=== PATIENT | male | born 1990 | race Caucasian/White ===

== ENCOUNTER 2018-01-21 08:45 | Emergency (ER) | payer MEDICAID ==
[~2018-01-21 08:45] MED LIST: CHLO25CA10 PO
[2018-01-21] MEDS ORDERED: TRIA15CR61 TP (10:32)
== END 2018-01-21 09:22 | disposition left against medical advice (07) ==
LOC: ER 08:46
DX: K64.9 Unspecified hemorrhoids (principal); Z53.21 Procedure and treatment not carried out due to patient leaving prior to being seen by health care provider

== ENCOUNTER 2018-01-21 09:38 | Emergency (ER) | payer MEDICAID ==
[~2018-01-21] VITALS: Ht 172.7 cm; Wt 59.2 kg
[2018-01-21] MEDS ORDERED: TRIA15CR61 TP (10:32)
[2018-01-21 10:50] VITALS: BP 121/81
== END 2018-01-21 10:54 | disposition home or self-care (01) ==
LOC: ER 09:38
DX: K64.4 Residual hemorrhoidal skin tags (principal); J45.909 Unspecified asthma, uncomplicated; F12.90 Cannabis use, unspecified, uncomplicated; Z88.1 Allergy status to other antibiotic agents; Z79.899 Other long term (current) drug therapy
CPT/HCPCS: 99283

== ENCOUNTER 2018-04-15 10:22 | Emergency (ER) | payer MEDICAID ==
[~2018-04-15] VITALS: Ht 167.6 cm; Wt 72.5 kg
[2018-04-15 10:31] VITALS: BP 148/89
[2018-04-15 11:06] LABS: BASOPHILS # (AUTO) 0.1 X10'3 (0-0.2); EOSINOPHILS % (AUTO) 0.4 % (0-6); HEMATOCRIT 51.4 % (42.0-52.0); HEMOGLOBIN 17.1 g/dl (14.0-17.9); LYMPHOCYTES # (AUTO) 1.4 X10'3 (1.1-4.8); LYMPHOCYTES % (AUTO) 11.8 % (21-51); MEAN CORPUSCULAR HEMOGLOBIN 31.3 PG (27.0-31.0); MEAN CORPUSCULAR HGB CONC 33.3 % (33.0-36.5); MEAN CORPUSCULAR VOLUME 93.8 FL (78-98); MONOCYTES # (AUTO) 0.7 X10'3 (0-0.9); NEUTROPHILS # (AUTO) 9.4 X10'3 (1.8-7.7); NEUTROPHILS % (AUTO) 80.8 % (42-75); PLATELET COUNT 263 X10'3 (140-440); RED BLOOD COUNT 5.48 X10'6 (4.70-6.10); RED CELL DISTRIBUTION WIDTH 12.4 % (11.5-14.5); WHITE BLOOD COUNT 11.6 X10'3 (4.5-11.0)
[2018-04-15 11:12] LABS: CLARITY,URINE CLEAR (Clear); COLOR,URINE DARK YELLOW (Yellow); GLUCOSE, URINE NEGATIVE (Neg); KETONES,URINE TRACE mg/dl (Neg); OCCULT BLOOD,URINE NEGATIVE (Neg); PROTEIN,URINE 30 mg/dl (Neg); UA COLLECTION TYPE CLN CATCH MIDSTREAM
[2018-04-15 11:13] LABS: LEUKOCYTE ESTERASE ,URINE NEGATIVE (Neg)
[2018-04-15 11:14] LABS: NITRITES, URINE NEGATIVE (Neg)
[2018-04-15] MEDS ORDERED: ondansetron/PF 4mg/2ml inj IV ONE (11:15)
[2018-04-15] MEDS ORDERED: normal saline 1000ML IV soln IVB ONE (11:15)
[2018-04-15 11:22] LABS: BACTERIA,URINE NONE SEEN /HPF (Neg); RBC,URINE 0-2 /HPF (0-2); SQUAMOUS EPITHELIAL CELL,UR NONE SEEN /LPF (FEW); WBC,URINE 0-4 /HPF (0-4)
[2018-04-15 11:23] LABS: MUCUS STRANDS FEW /LPF (Neg); SPERM MODERATE /HPF (NEGATIVE)
[2018-04-15 11:28] LABS: PROTHROMBIN TIME 10.4 SECONDS (9.0-12.0)
[2018-04-15 11:47] LABS: ALANINE AMINOTRANSFERASE 83 U/L (12-78); ALBUMIN 4.4 G/DL (3.4-5.0); ALBUMIN/GLOBULIN RATIO 1.2 (1.1-1.5); ALKALINE PHOSPHATASE 117 IU/L (46-116); ANION GAP 14 (8-16); ASPARTATE AMINO TRANSFERASE 95 U/L (10-37); BILIRUBIN,TOTAL 1.4 MG/DL (0.1-1.0); BLOOD UREA NITROGEN 8 MG/DL (7-18); BUN/CREATININE RATIO 8.3 (5.4-32.0); CALCIUM 8.8 MG/DL (8.5-10.1); CHLORIDE 97 MMOL/L (99-107); CREATININE 0.96 MG/DL (0.60-1.10); GLUCOSE 98 MG/DL (70-104); LIPASE 125 U/L (73-393); POTASSIUM 3.4 MMOL/L (3.5-5.1); SODIUM 140 MMOL/L (135-145); TOTAL CARBON DIOXIDE 28.7 MMOL/L (24-32); TOTAL PROTEIN 8.1 G/DL (6.4-8.2); eGFR > 90 ML/MIN
[2018-04-15] MEDS ORDERED: ONDA4TAB6 PO (12:24)
== END 2018-04-15 12:41 | disposition home or self-care (01) ==
LOC: ER 10:22
DX: J04.0 Acute laryngitis (principal); R94.5 Abnormal results of liver function studies; R11.2 Nausea with vomiting, unspecified; F10.10 Alcohol abuse, uncomplicated; J45.909 Unspecified asthma, uncomplicated; F12.10 Cannabis abuse, uncomplicated; Z88.1 Allergy status to other antibiotic agents; Z88.8 Allergy status to other drugs, medicaments and biological substances
CPT/HCPCS: 36415; 80053; 81001; 83690; 85025; 85610; 96361; 96374; 99283; J2405; J7030

== ENCOUNTER 2018-10-04 18:13 | Emergency (ER) | payer MEDICAID ==
[~2018-10-04] VITALS: Ht 160 cm; Wt 75.0 kg
[~2018-10-04 18:13] MED LIST changes: +ONDA4TAB6 PO
[2018-10-04 18:20] VITALS: BP 145/102
[2018-10-04 20:21] LABS: CLARITY,URINE CLEAR (Clear); COLOR,URINE YELLOW (Yellow); GLUCOSE, URINE NEGATIVE (Neg); KETONES,URINE NEGATIVE (Neg); LEUKOCYTE ESTERASE ,URINE NEGATIVE (Neg); NITRITES, URINE NEGATIVE (Neg); OCCULT BLOOD,URINE NEGATIVE (Neg); PROTEIN,URINE NEGATIVE (Neg); UROBILINOGEN,URINE 0.2 E.U/dL (0.2-1.0)
[2018-10-04 20:22] LABS: UA COLLECTION TYPE CLN CATCH MIDSTREAM
[2018-10-04] MEDS ORDERED: ketorolac trometh. 30mg/ml inj. IV ONE (20:35)
[2018-10-04] MEDS ORDERED: ondansetron/PF 4mg/2ml inj IV ONE (20:35)
[2018-10-04 20:53] LABS: BASOPHILS # (AUTO) 0.1 X10'3 (0-0.2); BASOPHILS % (AUTO) 1.5 % (0-1); EOSINOPHILS % (AUTO) 0.6 % (0-6); HEMATOCRIT 43.4 % (42.0-52.0); HEMOGLOBIN 14.8 g/dl (14.0-17.9); LYMPHOCYTES % (AUTO) 43.6 % (21-51); MEAN CORPUSCULAR HEMOGLOBIN 33.4 PG (27.0-31.0); MEAN CORPUSCULAR HGB CONC 34.1 g/dL (33.0-36.5); MEAN CORPUSCULAR VOLUME 97.8 FL (78-98); MEAN PLATELET VOLUME 8.6 FL (7.4-10.4); MONOCYTES # (AUTO) 0.6 X10'3 (0-0.9); MONOCYTES % (AUTO) 8.4 % (2-12); NEUTROPHILS # (AUTO) 3.1 X10'3 (1.8-7.7); NEUTROPHILS % (AUTO) 45.9 % (42-75); PLATELET COUNT 263 X10'3 (140-440); RED BLOOD COUNT 4.43 X10'6 (4.70-6.10); RED CELL DISTRIBUTION WIDTH 16.4 % (11.5-14.5); WHITE BLOOD COUNT 6.8 X10'3 (4.5-11.0)
[2018-10-04 21:15] LABS: ALANINE AMINOTRANSFERASE 269 U/L (12-78); ALBUMIN/GLOBULIN RATIO 0.8 (1.1-1.5); ALKALINE PHOSPHATASE 285 IU/L (46-116); ANION GAP 10 (8-16); ASPARTATE AMINO TRANSFERASE 217 U/L (10-37); BILIRUBIN,TOTAL 0.9 MG/DL (0.1-1.0); BLOOD UREA NITROGEN 10 MG/DL (7-18); BUN/CREATININE RATIO 10.2 (5.4-32.0); CALCIUM 8.4 MG/DL (8.5-10.1); CHLORIDE 104 MMOL/L (99-107); CREATININE 0.98 MG/DL (0.60-1.10); GLUCOSE 108 MG/DL (70-104); LIPASE 162 U/L (73-393); POTASSIUM 3.4 MMOL/L (3.5-5.1); SODIUM 141 MMOL/L (135-145); TOTAL CARBON DIOXIDE 27.1 MMOL/L (24-32); TOTAL PROTEIN 6.7 G/DL (6.4-8.2); eGFR 90 ML/MIN
== END 2018-10-04 21:58 | disposition home or self-care (01) ==
LOC: ER 18:13
DX: R10.31 Right lower quadrant pain (principal); R74.8 Abnormal levels of other serum enzymes; R19.7 Diarrhea, unspecified; J45.909 Unspecified asthma, uncomplicated; F17.200 Nicotine dependence, unspecified, uncomplicated; F12.90 Cannabis use, unspecified, uncomplicated; Z88.1 Allergy status to other antibiotic agents; Z88.8 Allergy status to other drugs, medicaments and biological substances; Z79.899 Other long term (current) drug therapy
CPT/HCPCS: 36415; 74176; 80053; 81003; 83690; 85025; 96374; 96375; 99284; J1885; J2405

== ENCOUNTER 2020-02-08 10:35 | Emergency (ER) | payer MEDICAID ==
[~2020-02-08] VITALS: Ht 170.2 cm; Wt 79.5 kg
[2020-02-08] MEDS ORDERED: ketorolac tromethamine 15mg/ml inj. IV ONE (11:10)
[2020-02-08] MEDS ORDERED: ketorolac trometh. 30mg/ml inj. IM ONE (11:20)
--- NOTE | 2020-02-08 11:20 | NUR ---
pt ambulates to xray with recycling tech
[2020-02-08] MEDS ORDERED: IBUP-1984 PO (11:29)
[2020-02-08] MEDS ORDERED: CYCL-394 PO (11:29)
[2020-02-08] MEDS ORDERED: LIDO1ADH TOP (11:29)
--- NOTE | 2020-02-08 11:30 | NUR ---
pt returns from xray
[2020-02-08 12:09] VITALS: BP 118/87
== END 2020-02-08 12:11 | disposition home or self-care (01) ==
LOC: ER 10:36
DX: S33.5XXA Sprain of ligaments of lumbar spine, initial encounter (principal); M54.5 Low back pain; J45.909 Unspecified asthma, uncomplicated; F12.90 Cannabis use, unspecified, uncomplicated; Z86.69 Personal history of other diseases of the nervous system and sense organs; Z72.89 Other problems related to lifestyle; Z88.1 Allergy status to other antibiotic agents; Z88.8 Allergy status to other drugs, medicaments and biological substances; Z79.899 Other long term (current) drug therapy; X58.XXXA Exposure to other specified factors, initial encounter; Y93.89 Activity, other specified; Y92.89 Other specified places as the place of occurrence of the external cause; Y99.8 Other external cause status
CPT/HCPCS: 72100; 96372; 99283; J1885

== ENCOUNTER 2020-08-22 11:44 | Inpatient (IN) | payer MEDICAID ==
[~2020-08-22] VITALS: Ht 172.7 cm; Wt 72.3 kg
[~2020-08-22 11:44] MED LIST changes: +LIDO1ADH TOP
[2020-08-22 12:33] LABS: CLARITY,URINE SLIGHTLY CLOUDY (Clear); COLOR,URINE YELLOW (Yellow); GLUCOSE, URINE NEGATIVE (Neg); KETONES,URINE 15 mg/dl (Neg); LEUKOCYTE ESTERASE ,URINE NEGATIVE (Neg); NITRITES, URINE NEGATIVE (Neg); OCCULT BLOOD,URINE TRACE-INTACT (Neg); PH,URINE 6.5 (4.8-8.0); PROTEIN,URINE 100 mg/dl (Neg)
[2020-08-22 12:36] LABS: UA COLLECTION TYPE CLN CATCH MIDSTREAM
[2020-08-22 12:42] LABS: BASOPHILS # (AUTO) 0.1 X10'3 (0-0.2); LYMPHOCYTES # (AUTO) 1.3 X10'3 (1.1-4.8); MONOCYTES # (AUTO) 0.3 X10'3 (0-0.9); MONOCYTES % (AUTO) 6.1 % (2-12); WHITE BLOOD COUNT 4.2 X10'3 (4.5-11.0)
[2020-08-22 12:43] LABS: ALANINE AMINOTRANSFERASE 94 U/L (12-78); ALBUMIN 3.5 G/DL (3.4-5.0); ALBUMIN/GLOBULIN RATIO 1.1 (1.1-1.5); ALKALINE PHOSPHATASE 235 IU/L (46-116); ANION GAP 9 (8-16); ASPARTATE AMINO TRANSFERASE 367 U/L (10-37); BILIRUBIN,TOTAL 0.7 MG/DL (0.1-1.0); BLOOD UREA NITROGEN 5 MG/DL (7-18); BUN/CREATININE RATIO 5.1 (5.4-32.0); CALCIUM 7.6 MG/DL (8.5-10.1); CHLORIDE 93 MMOL/L (99-107); CREATININE 0.99 MG/DL (0.60-1.10); GLUCOSE 134 MG/DL (70-104); LIPASE 296 U/L (73-393); SODIUM 143 MMOL/L (135-145); TOTAL PROTEIN 6.8 G/DL (6.4-8.2); eGFR 88 ML/MIN
[2020-08-22 12:44] LABS: BASOPHILS % (AUTO) 1.9 % (0-1); EOSINOPHILS % (AUTO) 1.2 % (0-6); LYMPHOCYTES % (AUTO) 30.4 % (21-51); MEAN PLATELET VOLUME 8.9 FL (7.4-10.4); NEUTROPHILS # (AUTO) 2.6 X10'3 (1.8-7.7); NEUTROPHILS % (AUTO) 60.4 % (42-75); PLATELET COUNT 131 X10'3 (140-440)
[2020-08-22 12:45] LABS: TOTAL CARBON DIOXIDE 41.5 MMOL/L (24-32)
[2020-08-22 12:55] LABS: MUCUS STRANDS MODERATE /LPF (Neg)
[2020-08-22 12:59] LABS: BACTERIA,URINE FEW /HPF (Neg); RBC,URINE 0-2 /HPF (0-2); SQUAMOUS EPITHELIAL CELL,UR NONE SEEN /LPF (FEW); WBC,URINE 0-4 /HPF (0-4)
[2020-08-22 13:07] LABS: HEMATOCRIT 48.1 % (42.0-52.0); HEMOGLOBIN 16.8 g/dl (14.0-17.9); MEAN CORPUSCULAR HEMOGLOBIN 35.4 PG (27.0-31.0); MEAN CORPUSCULAR HGB CONC 34.9 g/dL (33.0-36.5); MEAN CORPUSCULAR VOLUME 101.4 FL (78-98); RED BLOOD COUNT 4.74 X10'6 (4.70-6.10); RED CELL DISTRIBUTION WIDTH 15.4 % (11.5-14.5)
[2020-08-22] MEDS ORDERED: ondansetron/PF 4mg/2ml inj IV ONE (13:15)
[2020-08-22] MEDS ORDERED: loperamide 2mg capsule PO ONE (13:15)
[2020-08-22] MEDS ORDERED: normal saline 1000ML IV soln IVB ONE ×2 (13:15)
[2020-08-22] MEDS: potassium CL 10mEq/100ml bag 100 ML IV SCH ×2 (13:15→14:15)
[2020-08-22] MEDS ORDERED: pantoprazole 40 MG vial IV ONE (13:15)
[2020-08-22 13:18] LABS: ALBUMIN 3.6 G/DL (3.4-5.0); BLOOD UREA NITROGEN 5 MG/DL (7-18); BUN/CREATININE RATIO 5.1 (5.4-32.0); CALCIUM 7.9 MG/DL (8.5-10.1); CREATININE 0.98 MG/DL (0.60-1.10); GLUCOSE 132 MG/DL (70-104); eGFR 89 ML/MIN
[2020-08-22 13:24] LABS: ANION GAP 9 (8-16); CHLORIDE 91 MMOL/L (99-107); SODIUM 142 MMOL/L (135-145)
[2020-08-22 13:28] LABS: TOTAL CARBON DIOXIDE 42.1 MMOL/L (24-32)
[2020-08-22] MEDS ORDERED: dicyclomine 10 MG capsule PO PRN (14:05)
[2020-08-22] MEDS ORDERED: magnesium 2GM in 50ml NS 50 ML IV PRN (14:05)
[2020-08-22] MEDS ORDERED: magnesium Cl slow-release 64mg tablet PO PRN (14:05)
[2020-08-22] MEDS ORDERED: magnesium 4gm in 100ml NS 100 ML IV PRN (14:05)
[2020-08-22] MEDS ORDERED: potassium Cl 20 mEq SR tablet PO PRN (14:05)
[2020-08-22] MEDS ORDERED: potassium Cl 40MEQ/1/2NS 520ml 520 ML IV PRN (14:05)
[2020-08-22] MEDS ORDERED: dextrose 50%-water 50ml dispensing syringe IV PRN (14:05)
[2020-08-22] MEDS ORDERED: loperamide 2mg capsule PO PRN (14:05)
[2020-08-22] MEDS ORDERED: acetaminophen 325mg tablet PO PRN (14:05)
--- NOTE | 2020-08-22 15:41 | NUR ---
PAGER ID: [phone] MESSAGE: [phone] [place], k was critically low mag was not checked can I please order one? also lactic acid was elevated at 4.2 do you want blood cultures? fluid bolus? thanks peggy mcmullen [phone]
[2020-08-22] MEDS: metoclopramide 5 mg/ml inj IV PRN (15:49)
[2020-08-22] MEDS: normal saline 1000ml 1,000 ML IV SCH ×2 (15:49→22:01)
[2020-08-22] MEDS ORDERED: iohexol 300mg/ml 100ml inj. ONE (15:52)
[2020-08-22] MEDS: potassium Cl 40MEQ/1/2NS 520ml 520 ML IV PRN ×2 (16:40→22:24)
[2020-08-22 16:49] VITALS: BP 131/78
--- NOTE | 2020-08-22 16:52 | NUR ---
PAGER ID: [phone] MESSAGE: [phone] Bigg, can I order a nicotine patch please? patient is a heavy smoker, thanks peggy mcmullen [phone]
[2020-08-22] MEDS: LORazepam 2 mg/ml vial IV PRN (17:23)
--- NOTE | 2020-08-22 17:41 | NUR ---
PAGER ID: [phone] MESSAGE: [facility] 2 hour lactic is elevated from 4.2 to 4.6.Ashley ext [phone]
[2020-08-22 18:17] LABS: URINE AMPHETAMINE SCREEN NEGATIVE (Neg); URINE BARBITUATE SCREEN NEGATIVE (Neg); URINE BENZODIAZEPINES SCREEN NEGATIVE (Neg); URINE CANNABINOID SCREEN POSITIVE (Neg); URINE COCAINE SCREEN NEGATIVE (Neg); URINE METHADONE SCREEN NEGATIVE (Neg); URINE OPIATE SCREEN NEGATIVE (Neg); URINE PHENCYCLIDINE SCREEN NEGATIVE (Neg)
--- NOTE | 2020-08-22 18:22 | NUR ---
Problems reprioritized. Patient report given, questions answered & plan of care reviewed with Gail FRIED.
[2020-08-22 18:40] LABS: MAGNESIUM 2.1 MG/DL (1.5-2.4)
[2020-08-22] MEDS: K and/or MAG REPLACEMENT MC SCH (19:51)
[2020-08-22] MEDS: heparin, porcine 5000 units/ml vial SQ SCH (19:54)
[2020-08-22] MEDS: pantoprazole 40 MG vial IV SCH (19:54)
[2020-08-22] MEDS: LORazepam 1 MG tablet PO PRN (21:47)
[2020-08-22] MEDS: HYDROcodone/acetaminophen 5mg/325mg tablet PO PRN (21:47)
[2020-08-22] MEDS: ondansetron/PF 4mg/2ml inj IV PRN (21:49)
[2020-08-22 22:00] VITALS: BP 141/88
[2020-08-23] MEDS: LORazepam 1 MG tablet PO PRN (02:09)
[2020-08-23] MEDS: ondansetron/PF 4mg/2ml inj IV PRN ×3 (03:50→17:46)
[2020-08-23] MEDS: HYDROcodone/acetaminophen 5mg/325mg tablet PO PRN ×3 (04:30→17:52)
[2020-08-23] MEDS: normal saline 1000ml 1,000 ML IV SCH ×3 (04:32→19:27)
--- NOTE | 2020-08-23 06:35 | NUR ---
REPORT GIVEN TO FARIHA ANTON.
[2020-08-23 06:37] VITALS: BP 146/100
[2020-08-23 06:50] LABS: BASOPHILS # (AUTO) 0.1 X10'3 (0-0.2); BASOPHILS % (AUTO) 1.2 % (0-1); EOSINOPHILS % (AUTO) 0.9 % (0-6); HEMATOCRIT 32.1 % (42.0-52.0); HEMOGLOBIN 11.4 g/dl (14.0-17.9); LYMPHOCYTES # (AUTO) 1.2 X10'3 (1.1-4.8); LYMPHOCYTES % (AUTO) 25.3 % (21-51); MEAN CORPUSCULAR HEMOGLOBIN 35.1 PG (27.0-31.0); MEAN CORPUSCULAR HGB CONC 35.6 g/dL (33.0-36.5); MEAN CORPUSCULAR VOLUME 98.4 FL (78-98); MEAN PLATELET VOLUME 8.7 FL (7.4-10.4); MONOCYTES # (AUTO) 0.2 X10'3 (0-0.9); MONOCYTES % (AUTO) 4.6 % (2-12); NEUTROPHILS # (AUTO) 3.2 X10'3 (1.8-7.7); PLATELET COUNT 69 X10'3 (140-440); RED BLOOD COUNT 3.26 X10'6 (4.70-6.10); WHITE BLOOD COUNT 4.7 X10'3 (4.5-11.0)
[2020-08-23] MEDS: morphine 2 MG/ML inj. syringe IV PRN ×3 (06:51→20:27)
[2020-08-23 07:06] LABS: ALANINE AMINOTRANSFERASE 67 U/L (12-78); ALBUMIN 2.7 G/DL (3.4-5.0); ALBUMIN/GLOBULIN RATIO 1.1 (1.1-1.5); ALKALINE PHOSPHATASE 163 IU/L (46-116); ANION GAP 8 (8-16); ASPARTATE AMINO TRANSFERASE 254 U/L (10-37); BILIRUBIN,TOTAL 1.1 MG/DL (0.1-1.0); BLOOD UREA NITROGEN 3 MG/DL (7-18); BUN/CREATININE RATIO 3.6 (5.4-32.0); CALCIUM 6.1 MG/DL (8.5-10.1); CHLORIDE 98 MMOL/L (99-107); CREATININE 0.84 MG/DL (0.60-1.10); GLUCOSE 92 MG/DL (70-104); SODIUM 139 MMOL/L (135-145); TOTAL CARBON DIOXIDE 33.4 MMOL/L (24-32); TOTAL PROTEIN 5.1 G/DL (6.4-8.2); eGFR > 90 ML/MIN
[2020-08-23 07:12] LABS: POTASSIUM 2.3 MMOL/L (3.5-5.1)
--- NOTE | 2020-08-23 07:14 | NUR ---
PAGER ID: [phone] MESSAGE: [phone] dmitry Pride critically low at 2.3 and mag critically low at 1.0 melfa ext [phone]
[2020-08-23] MEDS: multivitamins, therapeutics tablet PO SCH (07:30)
[2020-08-23] MEDS: folic acid 1mg tablet PO SCH (07:30)
[2020-08-23] MEDS: nicotine 21mg patch - 24 hr TD SCH (07:31)
[2020-08-23] MEDS: thiamine 100mg tablet PO SCH (07:31)
[2020-08-23] MEDS: pantoprazole 40 MG vial IV SCH ×2 (07:32→20:22)
[2020-08-23] MEDS: heparin, porcine 5000 units/ml vial SQ SCH (08:00)
[2020-08-23] MEDS: LORazepam 2 mg/ml vial IV PRN ×4 (08:05→22:38)
[2020-08-23] MEDS: K and/or MAG REPLACEMENT MC SCH ×2 (08:12→20:00)
[2020-08-23] MEDS: potassium Cl 40MEQ/1/2NS 520ml 520 ML IV PRN ×4 (08:32→23:50)
[2020-08-23] MEDS ORDERED: NO HOME MEDS (10:22)
--- NOTE | 2020-08-23 12:36 | NUR ---
PAGER ID: [phone] MESSAGE: [phone] Bigg, can i change his blood sugars to Q6 instead of achs? thanks peggy ext [phone]
[2020-08-23 13:30] VITALS: BP 154/106
[2020-08-23 15:09] VITALS: BP 154/103
--- NOTE | 2020-08-23 15:09 | NUR ---
PAGER ID: [phone] MESSAGE: [phone] blood pressure is elevated at 154/103 heart rate of 81 even after ativan and morphine for back pain. Ashley ext [phone]
[2020-08-23 17:17] LABS: MAGNESIUM 2.8 MG/DL (1.5-2.4)
[2020-08-23 17:18] LABS: POTASSIUM 2.6 MMOL/L (3.5-5.1)
[2020-08-23] MEDS: atenolol 25mg tablet PO SCH (17:46)
--- NOTE | 2020-08-23 18:17 | NUR ---
Problems reprioritized. Patient report given, questions answered & plan of care reviewed with Constance FRIED.
[2020-08-23 18:30] VITALS: BP 145/102
--- NOTE | 2020-08-23 18:30 | NUR ---
Patient in room ORTHO 4017. I have received report from SLOANE and had the opportunity to ask questions and assume patient care.
[2020-08-23 22:00] VITALS: BP 123/92
[2020-08-23] MEDS: metoclopramide 5 mg/ml inj IV PRN (22:39)
[2020-08-24] MEDS: LORazepam 1 MG tablet PO PRN (03:08)
[2020-08-24] MEDS: ondansetron/PF 4mg/2ml inj IV PRN (03:11)
[2020-08-24 05:00] VITALS: BP 127/93
--- NOTE | 2020-08-24 06:15 | NUR ---
Problems reprioritized. Patient report given, questions answered & plan of care reviewed with
--- NOTE | 2020-08-24 06:21 | NUR ---
Patient in room ORTHO 4017. I have received report from Constance FRIED and had the opportunity to ask questions and assume patient care.
[2020-08-24 06:51] LABS: BASOPHILS # (AUTO) 0.1 X10'3 (0-0.2); EOSINOPHILS # (AUTO) 0.1 X10'3 (0-0.9); EOSINOPHILS % (AUTO) 1.7 % (0-6); HEMATOCRIT 35.6 % (42.0-52.0); HEMOGLOBIN 12.5 g/dl (14.0-17.9); LYMPHOCYTES # (AUTO) 0.8 X10'3 (1.1-4.8); LYMPHOCYTES % (AUTO) 15.3 % (21-51); MEAN CORPUSCULAR VOLUME 99.8 FL (78-98); MONOCYTES # (AUTO) 0.2 X10'3 (0-0.9); MONOCYTES % (AUTO) 4.4 % (2-12); NEUTROPHILS # (AUTO) 4.3 X10'3 (1.8-7.7); NEUTROPHILS % (AUTO) 77.6 % (42-75); PLATELET COUNT 68 X10'3 (140-440); RED BLOOD COUNT 3.57 X10'6 (4.70-6.10); RED CELL DISTRIBUTION WIDTH 16.1 % (11.5-14.5); WHITE BLOOD COUNT 5.5 X10'3 (4.5-11.0)
[2020-08-24 07:08] LABS: ALANINE AMINOTRANSFERASE 66 U/L (12-78); ALBUMIN 3.1 G/DL (3.4-5.0); ALBUMIN/GLOBULIN RATIO 1.1 (1.1-1.5); ALKALINE PHOSPHATASE 199 IU/L (46-116); ANION GAP 7 (8-16); ASPARTATE AMINO TRANSFERASE 257 U/L (10-37); BILIRUBIN,TOTAL 1.3 MG/DL (0.1-1.0); BLOOD UREA NITROGEN 2 MG/DL (7-18); CALCIUM 7.2 MG/DL (8.5-10.1); CHLORIDE 102 MMOL/L (99-107); CREATININE 0.66 MG/DL (0.60-1.10); GLUCOSE 95 MG/DL (70-104); MAGNESIUM 2.2 MG/DL (1.5-2.4); POTASSIUM 3.2 MMOL/L (3.5-5.1); SODIUM 139 MMOL/L (135-145); TOTAL CARBON DIOXIDE 30.1 MMOL/L (24-32); eGFR > 90 ML/MIN
[2020-08-24] MEDS: folic acid 1mg tablet PO SCH (07:44)
[2020-08-24] MEDS: multivitamins, therapeutics tablet PO SCH (07:45)
[2020-08-24] MEDS: thiamine 100mg tablet PO SCH (07:46)
[2020-08-24] MEDS: potassium Cl 20 mEq SR tablet PO PRN ×2 (07:47→12:27)
[2020-08-24] MEDS: atenolol 25mg tablet PO SCH (07:51)
[2020-08-24] MEDS: nicotine 21mg patch - 24 hr TD SCH (07:54)
[2020-08-24] MEDS: K and/or MAG REPLACEMENT MC SCH (08:04)
[2020-08-24] MEDS: normal saline 1000ml 1,000 ML IV SCH (08:27)
[2020-08-24] MEDS: pantoprazole 40 MG vial IV SCH (08:36)
[2020-08-24] MEDS: HYDROcodone/acetaminophen 5mg/325mg tablet PO PRN (08:36)
--- NOTE | 2020-08-24 10:40 | NUR ---
PAGER ID: [phone] MESSAGE: [phone] [place], tolerating clear liquid diet with no episodes of nausea or vomiting. Can i advance to regular please? thanks peggy mcmullen [phone]
[2020-08-24 10:42] VITALS: BP 145/104
--- NOTE | 2020-08-24 11:45 | NUR ---
Student Medication Administration:For this medication-pass time frame 0619-6088, all medications were reviewed, administered and documented per hospital policy by Devyn Bradley. Student documentation:I have reviewed and agree with all interventions, assessments performed and documented by Devyn Bradley.
[2020-08-24] MEDS: morphine 2 MG/ML inj. syringe IV PRN (12:27)
[2020-08-24] MEDS ORDERED: ATEN-168 PO (13:46)
[2020-08-24] MEDS ORDERED: MULT-25 PO (13:46)
--- NOTE | 2020-08-24 14:07 | NUR ---
Went over discharge instructions with patient regarding follow up, need to stop drinking, and care going forward. Sent home with prescriptions for atenolol and multivitamin [facility]. 20 gauge IV removed from right ac cannula intact no s/s of phlebitis, 20 gauge also removed from left upper arm cannula intact no s/s of phlebitis. Patient needed one more replacement for potassium at 1600 but wanted to leave so he got 2 20 meq replacements per the protocol. Discharged without any complications.
--- NOTE | 2020-08-25 11:33 | NUR ---
CASE MANAGEMENT DISCHARGE FOLLOW UP: Spoke with pt via telephone. Reports that he is doing okay, still has pain in the usual spots (legs and back), states arms sore from IVs/blood draws; denies seizure, N/V/D, CP/palpitations, SOB, dizziness/weakness. Verbalizes understanding of s/sx requiring further evaluation/emergent assistance. Verbalizes understanding of medications, states that his father has a BP cuff that he can use to assess BP/HR, aware of s/sx of medication working too well, will seek help if needed. Pt states that insurance would not cover TheraVit, will get OTC equivilent. Verbalizes compliance with MD discharge instructions, including no ETOH, THC, tobacco. Verbalizes understanding of the importance in making/keeping follow-up appointments, waiting for callback from [facility], will get referral from nephrology. Pt states that he needs MD note stating that he was in hospital from 08/22-08/24, advised that pt use discharge packet for proof of hospitalization as it is unlikely that this nurse will be able to get discharging MD to write note at this time, he verbalizes understanding. States no further questions/concerns at this time.
== END 2020-08-24 14:08 | disposition home or self-care (01) | DRG 280 ==
LOC: ER 11:45 → ED HOLD 14:01 → EDBEDREQ 14:24 → ORTHO 4S 16:20
PROVIDERS: ADMIT Internal Medicine; ATTEND Internal Medicine
PROC: BW211ZZ Computerized Tomography (CT Scan) of Abdomen and Pelvis using Low Osmolar Contrast (ICD-10-PCS; principal; 2020-08-22)
DX: K70.10 Alcoholic hepatitis without ascites (principal); E83.42 Hypomagnesemia; E87.2 Acidosis; E87.6 Hypokalemia; F10.20 Alcohol dependence, uncomplicated; F12.90 Cannabis use, unspecified, uncomplicated; F17.210 Nicotine dependence, cigarettes, uncomplicated; F51.04 Psychophysiologic insomnia; G40.909 Epilepsy, unspecified, not intractable, without status epilepticus; G89.29 Other chronic pain; J45.909 Unspecified asthma, uncomplicated; M54.9 Dorsalgia, unspecified; R03.0 Elevated blood-pressure reading, without diagnosis of hypertension; R19.7 Diarrhea, unspecified; Z88.8 Allergy status to other drugs, medicaments and biological substances; Z71.41 Alcohol abuse counseling and surveillance of alcoholic; Z71.6 Tobacco abuse counseling; Z71.51 Drug abuse counseling and surveillance of drug abuser
CPT/HCPCS: 36415; 74177; 80048; 80053; 80305; 81001; 82948; 83605; 83690; 83735; 84132; 85025; 85610; 87040; 87081; 93005; 96365; 97116; 97161; 97530; 99285; C9113; G0378; J1644; J2060; J2270; J2405; J2765; J3475; J3480; J7030; Q9967

== ENCOUNTER 2021-03-14 06:27 | Emergency (ER) | payer MEDICAID ==
[~2021-03-14] VITALS: Ht 172.7 cm; Wt 77.0 kg
[~2021-03-14 06:27] MED LIST changes: +ATEN-168 PO; -CHLO25CA10 PO; -LIDO1ADH TOP; +MULT-25 PO; +NO HOME MEDS; -ONDA4TAB6 PO
[2021-03-14] MEDS ORDERED: potassium Cl 20 mEq SR tablet PO STA (07:06)
[2021-03-14 07:24] VITALS: BP 131/91
== END 2021-03-14 07:28 | disposition home or self-care (01) ==
LOC: ER 06:27
DX: G40.909 Epilepsy, unspecified, not intractable, without status epilepticus (principal); E87.6 Hypokalemia; J45.909 Unspecified asthma, uncomplicated; F12.10 Cannabis abuse, uncomplicated; Z79.899 Other long term (current) drug therapy; Z88.1 Allergy status to other antibiotic agents
CPT/HCPCS: 82948; 93005; 99284